=== PATIENT | female | born 1975 ===

== ENCOUNTER 2016-08-22 05:04 | Inpatient (IN) | payer BC ==
[2016-08-22] MEDS ORDERED: ceFAZolin 2 GM in Premix Bag 1 BAG IV ONE (05:25)
[2016-08-22] MEDS ORDERED: Sodium Chloride 0.9% 2.5 ML Syringe FLUSH PRN (05:25)
[2016-08-22] MEDS ORDERED: Sodium Chloride 0.9% 10 ML Syringe FLUSH PRN (05:25)
[2016-08-22] MEDS ORDERED: Citric Acid/Sodium Citrate Solution 30 ML Cup PO SCH (05:30)
[2016-08-22] MEDS: Lactated Ringers 1,000 ML IV SCH ×5 (06:00→23:06)
--- NOTE | 2016-08-22 07:22 | PCM.PREANE ---
Preanesthetic Assessment - Anesthesia/Transfusion/Family Hx Anesthesia History: No Prior Anesthesia Family History of Anesthesia Reaction: No Transfusion History: No Prior Transfusion(s) - Review of Systems General: No Symptoms Pulmonary: No Symptoms Cardiovascular: No Symptoms Gastrointestinal: No symptoms Neurological: No Symptoms Other: Reports: None - Physical Assessment NPO Status Date: 08/21/16 Height: 1.52 m Weight: 85.275 kg ASA Class: 2 Mental Status: Alert & Oriented x3 Airway Class: Mallampati = 2 Dentition: Reports: Normal Dentition Lungs: Clear to auscultation, Normal respiratory effort Cardiovascular: Regular Rate, Regular Rhythm - Lab Values: Laboratory Last Values WBC 9.97 K/uL (4.0-11.0) 08/22/16 05:58 RBC 4.43 M/uL (4.30-5.90) 08/22/16 05:58 Hgb 13.2 g/dL (12.0-16.0) 08/22/16 05:58 Hct 39.0 % (36.0-46.0) 08/22/16 05:58 MCV 88.0 fL (80.0-98.0) 08/22/16 05:58 MCH 29.8 pg (27.0-32.0) 08/22/16 05:58 MCHC 33.8 g/dL (31.0-37.0) 08/22/16 05:58 RDW Std Deviation 44.3 fl (28.0-62.0) 08/22/16 05:58 RDW Coeff of Kenn 14 % (11.0-15.0) 08/22/16 05:58 Plt Count 166 K/uL (150-400) 08/22/16 05:58 MPV 12.70 fL (7.40-12.00) H 08/22/16 05:58 Nucleated RBC % 0.0 /100WBC 08/22/16 05:58 Nucleated RBCs # 0 K/uL 08/22/16 05:58 Blood Type A POSITIVE 08/22/16 05:58 Antibody Screen NEGATIVE 08/22/16 05:58 - Allergies Allergies/Adverse Reactions: Allergies Allergy/AdvReac Type Severity Reaction Status Date / Time No Known Allergies Allergy Verified 08/17/16 08:52 - Blood Blood Available: Yes - Anesthesia Plan Pre-Op Medication Ordered: Antacids - Acknowledgements Anesthesia Type Planned: Spinal Pt an Appropriate Candidate for the Planned Anesthesia: Yes Alternatives and Risks of Anesthesia Discussed w Pt/Guardian: Yes Pt/Guardian Understands and Agrees with Anesthesia Plan: Yes Additional Comments: , last delivery 20 years ago, now for scheduled c/s for placenta previa, No gestational problems, PMH=negative. 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 [No Known Home Meds] 08/17/16 [History] - CURRENT (IN HOUSE) MEDS Current Meds: Current Medications Citric Acid/Sodium Citrate (Bicitra Solution) 30 ml PO .ONCE [facility] Lactated Ringer's (Ringers, Lactated) 1,000 mls @ 500 mls/hr IV .BOLUS [facility] Sodium Chloride (Saline Flush) 10 ml FLUSH ASDIRECTED PRN PRN Reason: Keep Vein Open Sodium Chloride (Saline Flush) 2.5 ml FLUSH ASDIRECTED PRN PRN Reason: Keep Vein Open Discontinued Medications Cefazolin Sodium/Dextrose 2 gm (/ Premix) 50 mls @ 100 mls/hr IV ONETIME ONE Stop: 08/22/16 05:54
[2016-08-22] MEDS ORDERED: Propofol 200 MG/20 ML SDV ONE (07:23)
[2016-08-22] MEDS ORDERED: Oxytocin 10 Units/1 ML SDV ONE ×3 (07:23→08:34)
[2016-08-22] MEDS ORDERED: Ketorolac 30 MG/ML SDV ONE (07:24)
[2016-08-22] MEDS ORDERED: Ondansetron 4 MG/2 ML SDV ONE (07:24)
[2016-08-22] MEDS ORDERED: ePHEDrine 50 MG/ML SDV ONE (07:27)
[2016-08-22] MEDS ORDERED: Morphine PF 10 MG/10 ML SDV ONE (07:28)
[2016-08-22] MEDS ORDERED: Octyl 2-Cyanoacrylate 1 Tube ONE ×2 (08:58→09:03)
[2016-08-22] MEDS ORDERED: Lanolin 100% Cream 7 GM Tube TOP PRN (09:07)
[2016-08-22] MEDS ORDERED: Simethicone 80 MG Tab.Chew PO PRN (09:07)
[2016-08-22] MEDS ORDERED: Acetaminophen/oxyCODONE 325-5 MG Tab PO PRN (09:07)
[2016-08-22] MEDS ORDERED: Bisacodyl 10 MG Supp RECTAL PRN (09:07)
[2016-08-22] MEDS ORDERED: Ondansetron 4 MG/2 ML SDV IV PRN (09:07)
[2016-08-22] MEDS ORDERED: Aluminum Hydroxide/Magnesium Hydroxide/Simethicone Susp 30 ML Cup PO PRN (09:07)
[2016-08-22] MEDS ORDERED: diphenhydrAMINE 50 MG/ML SDV IVPUSH PRN (09:07)
[2016-08-22] MEDS ORDERED: Ibuprofen 800 MG Tab PO PRN (09:07)
--- NOTE | 2016-08-22 09:16 | PCM.OPNOTE ---
- General Post-Op/Procedure Note Date of Surgery/Procedure: 08/22/16 Operative Procedure(s): Primary LTCS Findings: Viable male APGARs 8, 8 weight 3010 gm. Posterior low lying placenta confirmed-- to edge of posterior internal os. Pre Op Diagnosis: 39 week IUP. Low lying placenta Post-Op Diagnosis: Same Anesthesia Technique: Spinal Primary Surgeon: Lory Cruz Fluid Replacement, Intraop: 3,000 (crystalloid) EBL in mLs: 600 Complications: None known Condition: Good Free Text/Narrative:: Dictation [id number]
[2016-08-22] MEDS ORDERED: Nalbuphine 10 MG/1 ML Vial IVPUSH PRN (09:26)
[2016-08-22] MEDS ORDERED: fentaNYL 100 MCG/2 ML SDV IVPUSH PRN (09:26)
--- NOTE | 2016-08-22 09:48 | PCM.POSTAN ---
POST ANESTHESIA ASSESSMENT - MENTAL STATUS Mental Status: alert, oriented - VITAL SIGNS Pulse Rate: 68 SaO2: 97 Resp Rate: 17 Blood Pressure: 135/82 - RESPIRATORY Respiratory Status: respiratory rate WNL, airway patent, O2 saturation stable - CARDIOVASCULAR CV Status: pulse rate WNL, blood pressure stable - GASTROINTESTINAL GI Status: no symptoms - PAIN Pain Score: 0 Free Text/Narrative:: Spinal has receded to L3-4 - POST OP HYDRATION Hydration Status: adequate & stable
--- NOTE | 2016-08-22 11:43 | OR ---
SURGEON: Lory Cruz M.D. DATE OF PROCEDURE: 08/22/2016 PREOPERATIVE DIAGNOSES: 1. A 39-week intrauterine . 2. Low-lying placenta. POSTOPERATIVE DIAGNOSES: 1. A 39-week intrauterine . 2. Low-lying placenta. PROCEDURE: Primary low transverse section. ANESTHESIA: Spinal. ESTIMATED BLOOD LOSS: 600 mL. FLUID: 3000 mL crystalloid. COMPLICATIONS: None. FINDINGS: Viable male, score 8 at 1 minute, 8 at 5 minutes. Weight of 3010 g. Confirmation of a posterior low-lying placenta to the edge of the internal os. Delivered and 3-vessel cord was found to be present. DISPOSITION: The patient to PACU and to nursery, stable. PROCEDURE IN DETAIL: Sj is a 41-year-old G3, P 1-0-1-1, at 39 weeks' gestational age, who presents today for scheduled delivery due to persistent low lying placenta that is within 1 cm of the internal os. Risks of the procedure have been discussed. Proper consent obtained. The patient was taken to the operating room, where she underwent spinal anesthesia. The patient was placed in the dorsal supine position with leftward tilt. SCDs to lower extremities. Howell to gravity. Prepped and draped in usual sterile fashion. Received Ancef prophylactically. Time-out performed. After being prepped and draped in usual sterile fashion, anesthesia was tested, found to be adequate. A Pfannenstiel incision was now created, carried down through the level of the subcutaneous tissue to the level of rectus fascia, which was incised in the midline and lateralized and dissected sharply and bluntly. Superior aspect of the fascia was tented upward, dissected sharply and bluntly from underlying muscles. A similar aspect was performed at the inferior aspect of the fascia. Rectus muscle was in midline. Peritoneum was tented upward and entered sharply. Rectus muscles and peritoneum were now lateralized bluntly. Uterine position and position palpated. Uterovesical reflection was visualized. Bladder was mobilized away from the lower uterine segment. Low transverse hysterotomy was now performed. Uterine cavity was entered with the blunt end of the scalpel. Amniotomy revealed clear fluid. Hysterotomy was lateralized bluntly. The 's head was flexed, delivered from the pelvis. Fundal pressure was applied. The 's head was delivered followed by anterior shoulder, posterior shoulder, and remaining body without difficulty. The 's oropharynx and nares bulb suctioned. Cord clamped x2 and cut. Infant was handed off to attending nursing staff. Cord arterial, cord venous, cord blood sampling was obtained. The posterior placenta was now inspected and it was found indeed to be low lying with the hitch right at the level of the internal os. The placenta was now delivered. Uterine cavity was cleared of all clot and debris. Hysterotomy was repaired using 0 Vicryl in continuous running locked fashion followed by a re-imbricating layer. Area of bleeding in the midline was replicated with [id number] suture. Hemostasis was thereafter evident. Small superficial serosal laceration just above the level of the hysterotomy was repaired using 0 Vicryl with two [id number] sutures. Hemostasis was thereafter evident. Posterior aspect of the uterus was inspected, no defects or hematomas were found to be forming. Regions well irrigated and suction dried. Colonic gutters were cleared of all clot and debris, well irrigated suction dried. The hysterotomy was once again inspected, found to be hemostatic. Any areas of serosal oozing were cauterized. The rectus muscles were now reapproximated using 0 Vicryl in inverted mattress suture technique. Anterior aspect of the muscle, posterior fascia closely inspected. Any areas of oozing were cauterized. The rectus fascia was reapproximated using 0 Vicryl in continuous running fashion beginning laterally incised in the midline. Subcutaneous tissue was well irrigated, suction dried. Any areas of oozing were cauterized. Skin edges were reapproximated using 3-0 Vicryl on a Aman needle in subcuticular fashion followed by Dermabond. Uterus remained firm. Sponge, instrument, and needle counts were correct x2. The patient has received 30 units of Pitocin and 1500 mL of IV fluid. TINO / SRINIVASA /[id number]
[2016-08-22] MEDS: Ketorolac 30 MG/ML SDV IVPUSH SCH ×2 (15:27→21:17)
[2016-08-22] MEDS ORDERED: Promethazine 25 MG/ML SDV IM PRN (19:29)
[2016-08-23] MEDS: Ketorolac 30 MG/ML SDV IVPUSH SCH ×2 (03:14→09:15)
[2016-08-23] MEDS: Docusate Sodium 100 MG Cap PO SCH (09:15)
--- NOTE | 2016-08-23 13:38 | PCM48HPAN ---
Post Anesthesia Note - EVALUATION WITHIN 48HRS OF ANESTHETIC Vital Signs in Normal Range: Yes Patient Participated in Evaluation: Yes Respiratory Function Stable: Yes Airway Patent: Yes Cardiovascular Function Stable: Yes Hydration Status Stable: Yes Pain Control Satisfactory: Yes Nausea and Vomiting Control Satisfactory: Yes Mental Status Recovered: Yes
--- NOTE | 2016-08-23 15:25 | PCM.PNPP ---
- General Info Date of Service: 08/23/16 Functional Status: Reports: pain controlled, tolerating diet, ambulating, urinating - Review of Systems General: Reports: No Symptoms HEENT: Reports: no symptoms Pulmonary: Reports: no symptoms Cardiovascular: Reports: No Symptoms Gastrointestinal: Reports: No symptoms Genitourinary: Reports: no symptoms Musculoskeletal: Reports: no symptoms Skin: Reports: no symptoms Neurological: Reports: No Symptoms Psychiatric: Reports: no symptoms - General Info Date of Service: 08/23/16 - Patient Data Vital Signs - most recent: Last Vital Signs Temp 36.8 C 08/23/16 12:00 Pulse 69 08/23/16 12:00 Resp 14 08/23/16 12:00 BP 103/73 08/23/16 12:00 Pulse Ox 99 08/23/16 12:00 Weight - most recent: 85.275 kg I&O - last 24 hours: Intake & Output 08/23/16 08/23/16 08/23/16 06:59 14:59 22:59 Intake Total 1500 Output Total 900 400 Balance 600 -400 Lab Results - last 24 hrs: Laboratory Results - last 24 hr 08/23/16 Range/Units 05:18 Hgb 10.5 L (12.0-16.0) g/dL Hct 31.5 L (36.0-46.0) % Med Orders - Current: Current Medications Al Hydroxide/Mg Hydroxide (Mag-Al Plus) 30 ml PO Q8H PRN PRN Reason: Heartburn Bisacodyl (Dulcolax) 10 mg RECTAL .ONCE PRN PRN Reason: Constipation Citric Acid/Sodium Citrate (Bicitra Solution) 30 ml PO .ONCE [facility] Last Admin: 08/22/16 07:48 Dose: 30 ml Diphenhydramine HCl (Benadryl) 25 mg IVPUSH Q6H PRN PRN Reason: Itching or Nausea Docusate Sodium (Colace) 100 mg PO BID [facility] Last Admin: 08/23/16 09:15 Dose: 100 mg Emollient Ointment (Lansinoh Hpa) 0 gm TOP ASDIRECTED PRN PRN Reason: Sore Nipples Lactated Ringer's (Ringers, Lactated) 1,000 mls @ 500 mls/hr IV .BOLUS [facility] Last Admin: 08/22/16 07:57 Dose: 999 mls/hr Lactated Ringer's (Ringers, Lactated) 1,000 mls @ 125 mls/hr IV ASDIRECTED [facility] Last Admin: 08/22/16 23:06 Dose: 125 mls/hr Ibuprofen (Motrin) 800 mg PO Q8H PRN PRN Reason: mild pain or fever Ondansetron HCl (Zofran) 4 mg IV Q4H PRN PRN Reason: Nausea/Vomiting Last Admin: 08/22/16 14:00 Dose: 4 mg Oxycodone/Acetaminophen (Percocet 325-5 Mg) 1 tab PO Q4H PRN PRN Reason: Pain (moderate 4-6) Oxycodone/Acetaminophen (Percocet 325-5 Mg) 2 tab PO Q4H PRN PRN Reason: Pain (moderate 4-6) Promethazine HCl (Phenergan) 12.5 mg IM Q6H PRN PRN Reason: Nausea Simethicone (Simethicone) 80 mg PO Q4H PRN PRN Reason: Gas Sodium Chloride (Saline Flush) 10 ml FLUSH ASDIRECTED PRN PRN Reason: Keep Vein Open Sodium Chloride (Saline Flush) 2.5 ml FLUSH ASDIRECTED PRN PRN Reason: Keep Vein Open Discontinued Medications Ephedrine Sulfate (Ephedrine Sulfate) Confirm Administered Dose 100 mg .ROUTE .STK-MED ONE Stop: 08/22/16 07:28 Fentanyl (Sublimaze) 50 mcg IVPUSH Q5M PRN PRN Reason: Pain (severe 7-10) Stop: 08/23/16 09:27 Cefazolin Sodium/Dextrose 2 gm (/ Premix) 50 mls @ 100 mls/hr IV ONETIME ONE Stop: 08/22/16 05:54 Ketorolac Tromethamine (Toradol) Confirm Administered Dose 30 mg .ROUTE .STK- MED ONE Stop: 08/22/16 07:25 Ketorolac Tromethamine (Toradol) 30 mg IVPUSH Q6H [facility] Stop: 08/23/16 09:16 Last Admin: 08/23/16 09:15 Dose: 30 mg Morphine Sulfate (Duramorph Pf) Confirm Administered Dose 10 mg .ROUTE .STK-MED ONE Stop: 08/22/16 07:29 Nalbuphine HCl (Nubain) 5 mg IVPUSH Q3H PRN PRN Reason: Pruritis Stop: 08/23/16 09:27 Octyl Cyanoacrylate (Dermabond Advance) Confirm Administered Dose 1 applic .ROUTE .STK-MED ONE Stop: 08/22/16 08:59 Octyl Cyanoacrylate (Dermabond Advance) Confirm Administered Dose 1 applic .ROUTE .STK-MED ONE Stop: 08/22/16 09:04 Ondansetron HCl (Zofran) Confirm Administered Dose 4 mg .ROUTE .STK-MED ONE Stop: 08/22/16 07:25 Oxytocin (Pitocin) Confirm Administered Dose 10 unit .ROUTE .STK-MED ONE Stop: 08/22/16 07:24 Oxytocin (Pitocin) Confirm Administered Dose 10 unit .ROUTE .STK-MED ONE Stop: 08/22/16 07:25 Oxytocin (Pitocin) Confirm Administered Dose 10 unit .ROUTE .STK-MED ONE Stop: 08/22/16 08:35 Propofol (Diprivan 20 Ml) Confirm Administered Dose 200 mg .ROUTE .STK-MED ONE Stop: 08/22/16 07:24 - Infant Interaction Infant Disposition, : in Room with Family Interaction: Holding Infant Support Person: Significant Other - Recovery Exam Fundal Tone: Firm Fundal Level: At Umbilicus Fundal Placement: Midline Lochia Amount: Scant Lochia Color: Rubra/Red Perineum Description: Intact, Minimal Bruising/Swelling Episiotomy/Laceration: None Bladder Status: Voiding Urinary Elimination: Voided - Exam General: alert, oriented Neck: supple Lungs: Clear to auscultation, Normal respiratory effort Cardiovascular: Regular Rate, Regular Rhythm Abdomen: bowel sounds present, soft, no tenderness Extremities: no calf tenderness Skin: warm, dry, intact Wound/Incisions: dressing dry and intact Neurological: no new focal deficit Psy/Mental Status: alert, normal affect, normal mood - Problem List & Annotations (1) Previous section SNOMED Code(s): 362323687 Code(s): Z98.891 - HISTORY OF UTERINE SCAR FROM PREVIOUS SURGERY Status: Acute Current Visit: Yes (2) Delivered by section SNOMED Code(s): 077386967 Code(s): O82 - ENCOUNTER FOR DELIVERY WITHOUT INDICATION Status: Acute Current Visit: Yes - Problem List Review Problem List Initiated/Reviewed/Updated: Yes - Assessment Assessment:: POD#1 S/p 1LTCS for placenta previa Doing well overall but not flatus yet Desires discharge home tomorrow - Plan Plan:: Increase ambulation May shower Routine postop/ care
[2016-08-23] MEDS: Acetaminophen/oxyCODONE 325-5 MG Tab PO PRN (16:52)
[2016-08-24] MEDS: Acetaminophen/oxyCODONE 325-5 MG Tab PO PRN ×2 (01:08→08:07)
[2016-08-24] MEDS: Docusate Sodium 100 MG Cap PO SCH (08:07)
[2016-08-24 08:45] VITALS: BP 121/75
--- NOTE | 2016-08-24 09:03 | PCM.PNPP ---
- General Info Date of Service: 08/24/16 Functional Status: Reports: pain controlled, tolerating diet, ambulating, urinating - Review of Systems General: Denies: Fever Cardiovascular: Denies: Chest Pain, Palpitations, Lightheadedness Gastrointestinal: Denies: Nausea, Vomiting Genitourinary: Denies: flank pain Psychiatric: Reports: no symptoms - General Info Date of Service: 08/24/16 - Patient Data Vital Signs - most recent: Last Vital Signs Temp 36.9 C 08/24/16 07:55 Pulse 75 08/24/16 07:55 Resp 16 08/24/16 07:55 BP 121/75 08/24/16 07:55 Pulse Ox 98 08/24/16 07:55 Weight - most recent: 85.275 kg Med Orders - Current: Current Medications Al Hydroxide/Mg Hydroxide (Mag-Al Plus) 30 ml PO Q8H PRN PRN Reason: Heartburn Bisacodyl (Dulcolax) 10 mg RECTAL .ONCE PRN PRN Reason: Constipation Citric Acid/Sodium Citrate (Bicitra Solution) 30 ml PO .ONCE [facility] Last Admin: 08/22/16 07:48 Dose: 30 ml Diphenhydramine HCl (Benadryl) 25 mg IVPUSH Q6H PRN PRN Reason: Itching or Nausea Docusate Sodium (Colace) 100 mg PO BID [facility] Last Admin: 08/24/16 08:07 Dose: 100 mg Emollient Ointment (Lansinoh Hpa) 0 gm TOP ASDIRECTED PRN PRN Reason: Sore Nipples Lactated Ringer's (Ringers, Lactated) 1,000 mls @ 500 mls/hr IV .BOLUS [facility] Last Admin: 08/22/16 07:57 Dose: 999 mls/hr Lactated Ringer's (Ringers, Lactated) 1,000 mls @ 125 mls/hr IV ASDIRECTED [facility] Last Admin: 08/22/16 23:06 Dose: 125 mls/hr Ibuprofen (Motrin) 800 mg PO Q8H PRN PRN Reason: mild pain or fever Last Admin: 08/24/16 08:07 Dose: 800 mg Ondansetron HCl (Zofran) 4 mg IV Q4H PRN PRN Reason: Nausea/Vomiting Last Admin: 08/22/16 14:00 Dose: 4 mg Oxycodone/Acetaminophen (Percocet 325-5 Mg) 1 tab PO Q4H PRN PRN Reason: Pain (moderate 4-6) Last Admin: 08/24/16 08:07 Dose: 1 tab Oxycodone/Acetaminophen (Percocet 325-5 Mg) 2 tab PO Q4H PRN PRN Reason: Pain (moderate 4-6) Promethazine HCl (Phenergan) 12.5 mg IM Q6H PRN PRN Reason: Nausea Simethicone (Simethicone) 80 mg PO Q4H PRN PRN Reason: Gas Sodium Chloride (Saline Flush) 10 ml FLUSH ASDIRECTED PRN PRN Reason: Keep Vein Open Sodium Chloride (Saline Flush) 2.5 ml FLUSH ASDIRECTED PRN PRN Reason: Keep Vein Open Discontinued Medications Ephedrine Sulfate (Ephedrine Sulfate) Confirm Administered Dose 100 mg .ROUTE .STK-MED ONE Stop: 08/22/16 07:28 Fentanyl (Sublimaze) 50 mcg IVPUSH Q5M PRN PRN Reason: Pain (severe 7-10) Stop: 08/23/16 09:27 Cefazolin Sodium/Dextrose 2 gm (/ Premix) 50 mls @ 100 mls/hr IV ONETIME ONE Stop: 08/22/16 05:54 Ketorolac Tromethamine (Toradol) Confirm Administered Dose 30 mg .ROUTE .STK- MED ONE Stop: 08/22/16 07:25 Ketorolac Tromethamine (Toradol) 30 mg IVPUSH Q6H [facility] Stop: 08/23/16 09:16 Last Admin: 08/23/16 09:15 Dose: 30 mg Morphine Sulfate (Duramorph Pf) Confirm Administered Dose 10 mg .ROUTE .STK-MED ONE Stop: 08/22/16 07:29 Nalbuphine HCl (Nubain) 5 mg IVPUSH Q3H PRN PRN Reason: Pruritis Stop: 08/23/16 09:27 Octyl Cyanoacrylate (Dermabond Advance) Confirm Administered Dose 1 applic .ROUTE .STK-MED ONE Stop: 08/22/16 08:59 Octyl Cyanoacrylate (Dermabond Advance) Confirm Administered Dose 1 applic .ROUTE .STK-MED ONE Stop: 08/22/16 09:04 Ondansetron HCl (Zofran) Confirm Administered Dose 4 mg .ROUTE .STK-MED ONE Stop: 08/22/16 07:25 Oxytocin (Pitocin) Confirm Administered Dose 10 unit .ROUTE .STK-MED ONE Stop: 08/22/16 07:24 Oxytocin (Pitocin) Confirm Administered Dose 10 unit .ROUTE .STK-MED ONE Stop: 08/22/16 07:25 Oxytocin (Pitocin) Confirm Administered Dose 10 unit .ROUTE .STK-MED ONE Stop: 08/22/16 08:35 Propofol (Diprivan 20 Ml) Confirm Administered Dose 200 mg .ROUTE .STK-MED ONE Stop: 08/22/16 07:24 - Infant Interaction Disposition, : in Room with Family Interaction: Holding Support Person: Significant Other - Recovery Exam Fundal Tone: Firm Fundal Level: 1 Fingerbreadths Below Umbilicus Fundal Placement: Midline Lochia Amount: Scant Lochia Color: Rubra/Red Perineum Description: Intact, Minimal Bruising/Swelling Episiotomy/Laceration: None Bladder Status: Voiding Urinary Elimination: Voided - Exam General: alert, oriented Lungs: No: Normal respiratory effort Cardiovascular: No: Regular Rate, Regular Rhythm Abdomen: No: bowel sounds present, soft, CVA tenderness Extremities: no calf tenderness Skin: warm, dry, intact (Incision healing well drainage or erythema) Psy/Mental Status: alert, normal affect - Problem List & Annotations (1) Delivered by section SNOMED Code(s): 854948523 Code(s): O82 - ENCOUNTER FOR DELIVERY WITHOUT INDICATION Status: Acute Current Visit: Yes - Problem List Review Problem List Initiated/Reviewed/Updated: Yes - My Orders Last 24 Hours: My Active Orders 08/24/16 09:00 Ready for Discharge [RC] PER UNIT ROUTINE - Assessment Assessment:: POD#2 S/p 1LTCS for low lying placenta - Plan Plan:: Patient doing well overall--would like to go home today. Discharge to home, follow up at [facility] 2 and 6 weeks. Discharge instructions reviewed. Infection and bleeding warnings reviewed.
== END 2016-08-24 13:00 | disposition home or self-care (01) | DRG 540 ==
LOC: MW.OB 05:04
PROVIDERS: ADMIT Obstetrics & Gynecology; ATTEND Obstetrics & Gynecology
PROC: 10D00Z1 Extraction of Products of Conception, Low, Open Approach (ICD-10-PCS; principal; 2016-08-22)
DX: O44.43 Low lying placenta NOS or without hemorrhage, third trimester (principal); O09.523 Supervision of elderly multigravida, third trimester; Z3A.39 39 weeks gestation of pregnancy; Z37.0 Single live birth
CPT/HCPCS: 01961; 36415; 59025; 85014; 85018; 85027; 86850; 86900; 86901; A9270-GY; J0690; J1885; J2270; J2405; J2590; J2704; J7120